=== PATIENT | male | born 1955 | race Caucasian/White ===

== ENCOUNTER 2022-12-19 14:08 | Emergency (ER) | payer MEDICARE, SELFPAY ==
[2022-12-19] VITALS (19 sets, daily range): BP systolic 158–192; BP diastolic 58–98; PULSE 30–55; RESP 10–22; TEMP 36.6; O2SAT 89–96; BMI 42.9
--- NOTE | 2022-12-19 14:27 | XR_ITS ---
[address] [address] Patient Name: DAYANA GIMENEZ MRN: [id number] date: 1955 Sex: M Assigned Patient Location: ER Current Patient Location: ER Accession/Order Number: [id number] Exam Date: 12/19/2022 14:38 Report Date: 12/19/2022 15:07 At the request of: JAGDISH HERNANDEZ Procedure: XR chest 1V EXAMINATION: XR chest 1V HISTORY: Shortness of breath COMPARISON: None. TECHNIQUE: Portable chest FINDINGS: IMPRESSION: Poor inspiratory effort. Cardiac pacer paddles are present. No focal acute consolidation or infiltrate. No pneumothorax or pleural effusion. The heart is not enlarged. Electronically authenticated by: CUAUHTEMOC MACIAS Date: 12/19/2022 15:07
--- NOTE | 2022-12-19 14:40 | PC.NURSE ---
Pt c/o dizziness/dyspnea and was sent from for slow heart rate. pt does have h/o LBBB. 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
--- NOTE | 2022-12-19 14:41 | PC.NURSE ---
PACER PADS PLACED ON PT AT THIS TIME
[2022-12-19 14:57] LABS: Alanine Aminotransferase 51 U/L (16-63); Albumin Globulin Ratio 0.9; Albumin Level 3.5 g/dL (3.4-5.0); Alkaline Phosphatase 90 U/L (46-116); Anion Gap 9.6; Aspartate Amino Transferase 29 U/L (15-37); BUN Creatinine Ratio 15.4; Bilirubin Total 0.4 mg/dL (0.2-1.0); Calcium 8.9 mg/dL (8.5-10.1); Carbon Dioxide 30.5 mmol/L (21.0-32.0); Chloride 106 mmol/L (98-107); Estimated GFR (African America >60 (>=60); Estimated GFR (Non-African Ame >60 (>=60); Globulin 3.8 g/dL; Glucose 108 mg/dL (74-106); Potassium 4.1 mmol/L (3.5-5.1); Sodium 142 mmol/L (136-145); Total Protein 7.3 g/dL (6.4-8.2); Troponin I High Sensitivity 25.5 pg/mL (4.0-76.1)
--- NOTE | 2022-12-19 15:04 | ED_ITS ---
HPI - General Adult General Chief complaint: Shortness of Breath/Dyspnea Stated complaint: LOW HR Time Seen by Provider: 12/19/22 14:16 Source: patient and family Mode of arrival: walk-in Limitations: no limitations History of Present Illness HPI narrative: patient presents from home with 3 days of shortness of breath at rest that worsens with exertion. He also complains of light-headedness over that same time. he attributes it to the [place] Citizen smoke that we have been experiencing since then. He denied any chest pain, pressure or tightness. No syncope or LOC. He used to see a project/production manager imaging in [place] and later in [facility] to help manage his BP and because he has a LBBB. He had two heart caths in [place] that were negative for blockage or other abnormality. He no longer sees a project/production manager imaging. PCP is Dr Prabha Gann in [place]. PMHx - NIDDM, HTN, high cholesterol Related Data Home Medications Medication Instructions Recorded Confirmed allopurinol 100 mg tablet 100 mg PO Q12H 12/19/22 12/19/22 amlodipine 5 mg tablet 5 mg PO DAILY 12/19/22 12/19/22 atorvastatin 20 mg tablet 20 mg PO DAILY 12/19/22 12/19/22 carvedilol 12.5 mg tablet 12.5 mg PO Q12H 12/19/22 12/19/22 dapagliflozin 10 mg tablet 10 mg PO DAILY 12/19/22 12/19/22 (Located Within [facility]) furosemide 80 mg tablet 80 mg PO DAILY 12/19/22 12/19/22 meloxicam 15 mg tablet 15 mg PO DAILY 12/19/22 12/19/22 omeprazole 20 mg capsule,delayed 20 mg PO DAILY 12/19/22 12/19/22 release sertraline 50 mg tablet 50 mg PO Q24H 12/19/22 12/19/22 Allergies Allergy/AdvReac Type Severity Reaction Status Date / Time Penicillins Allergy Severe Hives Verified 12/19/22 14:13 PFSH PFS Social History Smoking status: Former smoker Exam Narrative Exam Narrative: Nurses notes and vital signs reviewed and patient is not hypoxic. afebrile General: Well-appearing and in no apparent distress. Skin: Warm, dry, no pallor noted. Head: Normocephalic, atraumatic. Eye: Pupils are equal, round and EOMI. No scleral icterus. Ears, Nose, Mouth, and Throat: Oral mucosa is moist Cardiovascular: Regular Rate and Rhythm without murmur, gallop or rub. Respiratory: No accessory muscle use or respiratory distress. Lungs are clear to auscultation, no wheezing, rales or rhonchi Musculoskeletal: normal ROM, no calf or popliteal tenderness, trace lower extremity edema/swelling GI: Abdomen is soft, non-distended. Normal bowel sounds. Morbidly obese. No tenderness to palpation. No rebound, guarding, or rigidity noted. Neurological: A&O x4. No cranial nerve dysfunction observed. No truncal ataxia. Moves all extremities. Sensation intact. Psychiatric: Cooperative and interactive. Normal mood and affect. Constitutional Vital Signs - 24 hr 12/19/22 14:13 12/19/22 14:39 12/19/22 14:41 Temperature 98 F Pulse Rate Pulse Rate [Monitor] 37 L 37 L 38 L Respiratory Rate 18 Blood Pressure Blood Pressure [Right Arm] 178/72 H Pulse Oximetry 96 Oxygen Delivery Method Room Air 12/19/22 14:18 12/19/22 14:22 12/19/22 14:30 Temperature Pulse Rate 45 L 38 L Pulse Rate [Monitor] Respiratory Rate 21 14 Blood Pressure Blood Pressure [Right Arm] Pulse Oximetry 92 L 92 L Oxygen Delivery Method 12/19/22 14:40 12/19/22 14:46 12/19/22 14:46 Temperature Pulse Rate 35 L 31 L 34 L Pulse Rate [Monitor] Respiratory Rate 10 L 14 19 Blood Pressure 172/59 H Blood Pressure [Right Arm] Pulse Oximetry 94 L 92 L 92 L Oxygen Delivery Method Course Vital Signs Vital signs: Vital Signs Temperature 98 F 12/19/22 14:13 Pulse Rate 37 L 12/19/22 14:13 Respiratory Rate 18 12/19/22 14:13 Blood Pressure 178/72 H 12/19/22 14:13 Pulse Oximetry 96 12/19/22 14:13 Oxygen Delivery Method Room Air 12/19/22 14:13 Temperature 98 F 12/19/22 14:13 Pulse Rate 34 L 12/19/22 14:46 Respiratory Rate 19 12/19/22 14:46 Blood Pressure 172/59 H 12/19/22 14:46 Pulse Oximetry 92 L 12/19/22 14:46 Oxygen Delivery Method Room Air 12/19/22 14:13 Medical Decision Making MDM Narrative Medical decision making narrative: Patient was placed on hospital monitor with pacer pads applied and EKG obtained. Blood drawn and sent for evaluation. CXR obtained. Labs notable only for slightly elevated BNP. Negative troponin. [facility] paged - spoke with Dr Vinson - informed me that they do not have definitive pacemaker capabability until 12/23/22 and recommended transfer to another facility I spoke with the transfer line at [facility]. Dr Senior - community services coordinator - and I discussed the patient's case by phone and he accepted the patient's admission and transfer. Ambulance transportation arranged. Patient and informed of plan and they are agreeable to transfer The patient is stable for transfer. Lab Data Lab results reviewed: Yes I reviewed the patient's lab results Labs: Lab Results 12/19/22 Range/Units 14:22 WBC 9.1 (4.0-11.0) 10^3/uL RBC 4.30 L (4.70-6.10) 10^6/uL Hgb 13.0 L (14.0-18.0) g/dL Hct 40.5 L (42.0-54.0) % MCV 94.2 H (80.0-94.0) fL MCH 30.2 (25.9-34.0) pg MCHC 32.1 (29.9-35.2) g/dL RDW 14.4 (11.0-15.0) % Plt Count 242 (150-450) 10^3/uL MPV 9.8 (9.5-13.5) fL Neut % (Auto) 58.2 (43.0-75.0) % Lymph % (Auto) 23.8 (20.5-60.0) % [place] % (Auto) 12.4 H (1.7-12.0) % Eos % (Auto) 3.1 (0.9-7.0) % Baso % (Auto) 1.3 (0.2-2.0) % Neut # (Auto) 5.3 (1.4-6.5) 10^3/uL Lymph # (Auto) 2.2 (1.2-3.8) 10^3/uL [place] # (Auto) 1.1 H (0.3-0.8) 10^3/uL Eos # (Auto) 0.3 (0.0-0.7) 10^3/uL Baso # (Auto) 0.1 (0.0-0.1) 10^3/uL Abs Immat Gran (auto) 0.11 H (0.00-0.03) 10^3/uL Imm/Tot Granulo (auto) 1.2 H (0.0-0.5) % PT 10.9 (9.0-11.6) sec INR 1.03 APTT 29.6 (22.3-36.2) sec Sodium 142 (136-145) mmol/L Potassium 4.1 (3.5-5.1) mmol/L Chloride 106 (98-107) mmol/L Carbon Dioxide 30.5 (21.0-32.0) mmol/L Anion Gap 9.6 BUN 14.0 (7.0-18.0) mg/dL Creatinine 0.91 (0.70-1.30) mg/dL Est GFR ( Amer) >60 (>=60) Est GFR (Non-Af Amer) >60 (>=60) BUN/Creatinine Ratio 15.4 Glucose 108 H (74-106) mg/dL Calcium 8.9 (8.5-10.1) mg/dL Total Bilirubin 0.4 (0.2-1.0) mg/dL AST 29 (15-37) U/L ALT 51 (16-63) U/L Alkaline Phosphatase 90 (46-116) U/L Troponin I High Sens 25.5 (4.0-76.1) pg/mL NT-Pro-B Natriuret Pep 1128.0 H (<=900.0) pg/mL Total Protein 7.3 (6.4-8.2) g/dL Albumin 3.5 (3.4-5.0) g/dL Globulin 3.8 g/dL Albumin/Globulin Ratio 0.9 Imaging Data Chest x-ray: Radiologist's impression: Patient Name: DAYANA GIMENEZ MRN: [id number] date: 1955 Sex: M Assigned Patient Location: ER Current Patient Location: ER Accession/Order Number: [id number] Exam Date: 12/19/2022 14:38 Report Date: 12/19/2022 15:07 At the request of: JAGDISH HERNANDEZ Procedure: XR chest 1V EXAMINATION: XR chest 1V HISTORY: Shortness of breath COMPARISON: None. TECHNIQUE: Portable chest FINDINGS: IMPRESSION: Poor inspiratory effort. Cardiac pacer paddles are present. No focal acute consolidation or infiltrate. No pneumothorax or pleural effusion. The heart is not enlarged. Electronically authenticated by: CUAUHTEMOC MACIAS Date: 12/19/2022 15:07 ECG Data Interpretation: EKG interpretation: Emergency Department physician interpretation. one to one heart block with every other P wave being nonconducted. Extreme bradycardia at 35 bpm, 1st degree av block, LBBB Critical Care Time Critical Care Time Critical Care Time: Yes Total Critical Care Time: 45 Attestation: critical care time is spent independent of any procedures had a false time with the patient, managing appropriate intervention and treatment as well as discussion of the patient's need to go to tertiary facility for definitive treatment. Discharge Plan Discharge Chief Complaint: Shortness of Breath/Dyspnea Clinical Impression: AV heart block Patient Disposition: [facility] Time of Disposition Decision: 16:45 Discharge Location: [facility] Prescriptions / Home Meds: No Action allopurinol 100 mg tablet 100 mg PO Q12H amlodipine 5 mg tablet 5 mg PO DAILY atorvastatin 20 mg tablet 20 mg PO DAILY carvedilol 12.5 mg tablet 12.5 mg PO Q12H furosemide 80 mg tablet 80 mg PO DAILY Farxiga 10 mg tablet 10 mg PO DAILY meloxicam 15 mg tablet 15 mg PO DAILY omeprazole 20 mg capsule,delayed release(DR/EC) 20 mg PO DAILY sertraline 50 mg tablet 50 mg PO Q24H Referrals: Physician,Non-Staff, MD [Primary Care Provider] - 1 week
[2022-12-19 15:12] LABS: Prothrombin Time 10.9 sec (9.0-11.6)
[2022-12-19 15:13] LABS: INR 1.03; Partial Thromboplastin Time 29.6 sec (22.3-36.2)
[2022-12-19 15:22] LABS: Basophils Absolute Auto 0.1 10^3/uL (0.0-0.1); Basophils Percent Auto 1.3 % (0.2-2.0); Eosinophils Absolute Auto 0.3 10^3/uL (0.0-0.7); Eosinophils Percent Auto 3.1 % (0.9-7.0); Hematocrit 40.5 % (42.0-54.0); Immature Granulocytes Abs Auto 0.11 10^3/uL (0.00-0.03); Immature Granulocytes Pct Auto 1.2 % (0.0-0.5); Lymphocytes Absolute Auto 2.2 10^3/uL (1.2-3.8); Lymphocytes Percent Auto 23.8 % (20.5-60.0); Mean Corpuscular HGB Conc 32.1 g/dL (29.9-35.2); Mean Corpuscular Hemoglobin 30.2 pg (25.9-34.0); Mean Corpuscular Volume 94.2 fL (80.0-94.0); Mean Platelet Volume 9.8 fL (9.5-13.5); Monocytes Absolute Auto 1.1 10^3/uL (0.3-0.8); Monocytes Percent Auto 12.4 % (1.7-12.0); Neutrophils Absolute Auto 5.3 10^3/uL (1.4-6.5); Neutrophils Percent Auto 58.2 % (43.0-75.0); Platelet Count 242 10^3/uL (150-450); Red Cell Distribution Width 14.4 % (11.0-15.0); White Blood Count 9.1 10^3/uL (4.0-11.0)
--- NOTE | 2022-12-19 17:16 | ECG_ITS ---
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
--- NOTE | 2022-12-19 17:41 | PC.NURSE ---
ATTEMPTED TO CALL PT'S TO INFORM HER EMS HAS ARRIVED TO GET PT AND TAKE TO [facility]. NO ANSWER. MESSAGE LEFT.
== END 2022-12-19 17:32 | disposition short-term general hospital (02) ==
PROVIDERS: Emergency Provider Emergency Medicine
DX: I44.0 Atrioventricular block, first degree (principal); I44.7 Left bundle-branch block, unspecified; E11.9 Type 2 diabetes mellitus without complications; I10 Essential (primary) hypertension; E78.00 Pure hypercholesterolemia, unspecified; Z79.899 Other long term (current) drug therapy; E66.01 Morbid (severe) obesity due to excess calories; Z68.41 Body mass index [BMI] 40.0-44.9, adult
CPT/HCPCS: 36415; 71045; 80053; 83880; 84484; 85025; 85610; 85730; 93005; 99285